=== PATIENT | female | born 1935 | race Caucasian/White ===

== ENCOUNTER 2019-12-01 10:31 | Emergency (ER) | payer BC, MEDICAID ==
[~2019-12-01] VITALS: Ht 157.5 cm; Wt 68.0 kg
[2019-12-01 11:02] LABS: BASOPHILS # (AUTO) 0.1 K/uL (0.0-8.0); BASOPHILS % (AUTO) 0.7 % (0.0-2.0); EOSINOPHILS # (AUTO) 0.1 K/uL (0.0-0.7); EOSINOPHILS % (AUTO) 0.6 % (0.0-7.0); HEMATOCRIT 45.4 % (31.2-41.9); HEMOGLOBIN 15.2 g/dL (10.9-14.3); LYMPHOCYTES # (AUTO) 1.2 K/uL (20.0-40.0); LYMPHOCYTES % (AUTO) 14.3 % (20.5-51.5); MEAN CORPUSCULAR HEMOGLOBIN 31.6 uug (24.7-32.8); MEAN CORPUSCULAR HGB CONC 33 g/dL (32.3-35.6); MEAN CORPUSCULAR VOLUME 94.8 fL (75.5-95.3); MONOCYTES # (AUTO) 0.4 K/uL (2.0-10.0); MONOCYTES % (AUTO) 5.4 % (0.0-11.0); NEUTROPHILS # (AUTO) 6.5 K/uL (1.8-8.9); PLATELET COUNT (AUTO) 328 K/uL (179-408); RED BLOOD CELL COUNT(AUTO) 4.79 MIL/uL (3.63-4.92); WHITE BLOOD COUNT (AUTO) 8.2 K/uL (3.8-11.8)
--- NOTE | 2019-12-01 11:06 | NUR ---
Patient's daughter refused CT scan. notified.
[2019-12-01 11:16] LABS: CARBON DIOXIDE 31 mmol/L (21-32); CHLORIDE 104 mmol/L (98-107); CREATININE 1.1 mg/dL (0.6-1.3); GLUCOSE 143 mg/dL (74-106); POTASSIUM 3.9 mmol/L (3.5-5.1); UREA NITROGEN, BLOOD 18 mg/dL (7-18)
[2019-12-01 11:17] LABS: ALANINE AMINOTRANSFERASE 19 U/L (14-59); ALKALINE PHOSPHATASE 80 U/L (50-136); ASPARTATE AMINOTRANSFERASE 13 U/L (15-37); BILIRUBIN,DIRECT 0.1 mg/dL (0.0-0.2)
[2019-12-01 11:18] LABS: BILIRUBIN,TOTAL 0.7 mg/dL (0.2-1.0); TOTAL PROTEIN, SERUM 7.3 g/dL (6.4-8.2)
--- NOTE | 2019-12-01 11:40 | NUR ---
Patient's daughter consents to CT scans now. 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
--- NOTE | 2019-12-01 12:37 | NUR ---
Patient is eating lunch tray with good appetite.
--- NOTE | 2019-12-01 12:49 | NUR ---
Patient discharged to home in stable condition. Written and verbal after care instructions given to patient's daughter. Patient's daughter verbalized understanding & compliance of instructions. Copies of all the tests results were provided per family's request.
== END 2019-12-01 12:59 | disposition home or self-care (01) ==
LOC: ER 10:31
DX: R42 Dizziness and giddiness (principal); F03.90 Unspecified dementia, unspecified severity, without behavioral disturbance, psychotic disturbance, mood disturbance, and anxiety
CPT/HCPCS: 36415; 70030-TC; 70450; 71045; 71250; 85025; 93005; A4663